=== PATIENT | female | born 2000 | race Caucasian/White ===

== ENCOUNTER 2018-02-05 18:14 | Emergency (ER) | payer BC ==
--- NOTE | 2018-02-05 18:43 | UC ---
Throat Pain/Nasal Williams HPI - HPI Summary HPI Summary: 17 year old female presents with 2-3 day history of sore throat. Associated with some mild right ear pain, mild, nasal congestion, and clear discharge. Denies fever, chills, dysphagia, or cough. - History of Current Complaint Chief Complaint: UCGeneralIllness Stated Complaint: THROAT COMPLAINT Time Seen by Provider: 02/05/18 18:28 Hx Obtained From: Patient Hx Last Menstrual Period: 01/24/18 ?: No Onset/Duration: Gradual Onset, Lasting Days - 2-3 Severity: Mild Pain Intensity: 6 Cough: None Associated Signs & Symptoms: Positive: Negative - Allergies/Home Medications Allergies/Adverse Reactions: Allergies Allergy/AdvReac Type Severity Reaction Status Date / Time No Known Allergies Allergy Verified 02/05/18 18:27 Home Medications: Home Medications Norethindrone-E.estradiol-Iron [Goldie 24 Fe 1-20 mg-Mcg(24)] 1 tab PO BEDTIME [History Confirmed 02/05/18] PMH/Surg Hx/FS Hx/Imm Hx - Additional Past Medical History Additional PMH: noncontributory Previously Healthy: Yes - Surgical History Surgical History: None - Family History Known Family History: Positive: Other - noncontributory - Social History Occupation: Student Lives: Alone Alcohol Use: None Substance Use Type: None Smoking Status (MU): Never Smoked Tobacco Review of Systems Constitutional: Negative Skin: Negative Eyes: Negative ENT: Sore Throat, Ear Ache - right, Nasal Discharge Cardiovascular: Negative Gastrointestinal: Negative Is Patient Immunocompromised?: No All Other Systems Reviewed And Are Negative: Yes Physical Exam Triage Information Reviewed: Yes Appearance: Well-Appearing, No Pain Distress, Well-Nourished Vital Signs: Initial Vital Signs Temp 98.3 F 02/05/18 18:23 Pulse 115 02/05/18 18:23 Resp 16 02/05/18 18:23 BP 114/64 02/05/18 18:23 Pulse Ox 100 02/05/18 18:23 Vital Signs Reviewed: Yes Eyes: Positive: Conjunctiva Clear ENT: Positive: Pharyngeal erythema, Nasal congestion, Nasal drainage, TMs normal , Tonsillar swelling - 2+, Uvula midline. Negative: Tonsillar exudate, Trismus , Muffled voice, Hoarse voice, Sinus tenderness Neck: Positive: Supple, Nontender, No Lymphadenopathy Respiratory: Positive: Lungs clear, Normal breath sounds Cardiovascular: Positive: RRR, No Murmur Abdomen Description: Positive: Nontender, No Organomegaly, Soft Skin Exam: Normal Diagnostics - Laboratory Diagnostic Studies Completed/Ordered: POC rapid strep negative Throat Pain/Nasal Course/Dx - Course Course Of Treatment: 17 year old female with 2-3 day history of sore throat associated with right ear discomfort, mild nasal congestion, and clear drainage. Mild pharyngeal erythema, 2+ tonsils without exudate, no lymphadenopathy. Rapid strep negative. Recommend conservative treatment for viral pharyngitis. Follow up if no improvement. - Differential Dx/Diagnosis Differential Diagnosis/HQI/PQRI: Mononucleosis, Pharyngitis, URI Provider Diagnoses: viral pharyngitis Discharge - Sign-Out/Discharge Documenting (check all that apply): Patient Departure All imaging exams completed and their final reports reviewed: No Studies - Discharge Plan Condition: Stable Disposition: HOME Patient Education Materials: Pharyngitis (ED) Referrals: No Primary Care Phys,NOPCP [Primary Care Provider] - [facility] [Provider Group] - 7 Days (If no improvement.) Additional Instructions: Your rapid strep test in the clinic today was negative. Your symptoms are likely viral. Antibiotics are not indicated for viral infections. Drink plenty of fluids. Use salt water gargles several times a day. Take over the counter pain medication such as acetaminophen (Tylenol) or ibuprofen (Advil, Motrin) according to directions as needed for pain. You may also use over counter Cloraseptic spray or Cepacol lozenges for temporary relief. Follow up with [facility] in 7 days if no improvement. - Billing Disposition and Condition Condition: STABLE Disposition: Home
== END 2018-02-05 18:52 | disposition home or self-care (01) ==
LOC: UCCORT 18:14
DX: J02.8 Acute pharyngitis due to other specified organisms (principal)
CPT/HCPCS: 87651; 99201; G0463

== ENCOUNTER 2019-04-17 18:02 | Emergency (ER) | payer BC ==
[2019-04-17 19:11] VITALS: BP 104/65
[2019-04-17 20:43] LABS: Influenza A Molecular NEGATIVE (Negative); Influenza B Molecular NEGATIVE (Negative)
--- NOTE | 2019-04-17 20:51 | UC ---
FLU HPI - HPI Summary HPI Summary: 18-year-old female presents with onset of fever, chills, general malaise, body aches, sore throat, cough today. Patient states she has also felt a little nauseous and had a couple episodes of loose stool today. Denies ear pain, nasal congestion, dysphagia, chest pain, shortness of breath, abdominal pain, vomiting, dysuria, frequency, or urgency. - History of Current Complaint Chief Complaint: UCRespiratory Stated Complaint: ST, FEVER, BODY ACHES Time Seen by Provider: 04/17/19 20:03 Hx Obtained From: Patient Hx Last Menstrual Period: 03/21/19 Pain Intensity: 4 - Allergy/Home Medications Allergies/Adverse Reactions: Allergies Allergy/AdvReac Type Severity Reaction Status Date / Time No Known Allergies Allergy Verified 04/17/19 19:04 Home Medications: Home Medications Metoprolol Tartrate TAB* [Lopressor TAB*] 1 tab DAILY 04/17/19 [History Confirmed 04/17/19] Norethindrone-E.estradiol-Iron [Blisovi 24 Fe Tablet] 1 tab DAILY 04/17/19 [ History Confirmed 04/17/19] PMH/Surg Hx/FS Hx/Imm Hx Previously Healthy: Yes Cardiovascular History: Other - Tachycardia - Surgical History Surgical History: Yes Surgery Procedure, Year, and Place: T&A, Jun 2018 - Family History Known Family History: Positive: Non-Contributory - Social History Occupation: Student Lives: Dormitory/Roommates Alcohol Use: Occasionally Substance Use Type: None Smoking Status (MU): Never Smoked Tobacco Review of Systems All Other Systems Reviewed And Are Negative: Yes Constitutional: Positive: Fever, Chills, Fatigue Skin: Negative: Rash Eyes: Negative: Drainage, Eye Redness ENT: Positive: Sore Throat. Negative: Ear Ache, Nasal Discharge, Sinus Congestion, Sinus Pain/Tenderness Respiratory: Positive: Cough. Negative: Shortness Of Breath Cardiovascular: Negative: Palpitations, Chest Pain Gastrointestinal: Positive: Diarrhea, Nausea. Negative: Abdominal Pain, Vomiting Genitourinary: Positive: Negative Musculoskeletal: Positive: Myalgia Neurological: Positive: Headache Is Patient Immunocompromised?: No Physical Exam - Summary Physical Exam Summary: GENERAL APPEARANCE: Well developed, well nourished, alert and cooperative, and appears to be in no acute distress. EYES: Conjunctiva clear. No drainage. EARS: External auditory canals and tympanic membranes clear, hearing grossly intact. NOSE: No nasal discharge. THROAT: Mild pharyngeal erythema. Tonsils surgically absent. Uvula midline. NECK: Neck supple, non-tender without lymphadenopathy. CARDIAC: Normal S1 and S2. No S3, S4 or murmurs. Rhythm is regular. There is no peripheral edema, cyanosis or pallor. Extremities are warm and well perfused. Capillary refill is less than 2 seconds. Peripheral pulses intact. LUNGS: Clear to auscultation without rales, rhonchi, wheezing or diminished breath sounds. ABDOMEN: Positive bowel sounds. Soft, nondistended, nontender. No guarding or rebound. No masses or hepatosplenomegally. No CVA tenderness. MUSKULOSKELETAL: ROM intact to all extremities. No joint erythema or tenderness. Normal muscular development. Normal gait. SKIN: Skin normal color, texture and turgor with no lesions or eruptions. Triage Information Reviewed: Yes Vital Signs: Initial Vital Signs Temp 99.8 F 04/17/19 19:05 Pulse 118 04/17/19 19:05 Resp 16 04/17/19 19:05 BP 104/65 04/17/19 19:05 Pulse Ox 100 04/17/19 19:05 Vital Signs Reviewed: Yes Flu Course/Dx - Course Course Of Treatment: 18-year-old female presents with onset of fever, chills, general malaise, body aches, sore throat, cough today. Patient states she has also felt a little nauseous and had a couple episodes of loose stool today. Denies ear pain, nasal congestion, dysphagia, chest pain, shortness of breath, abdominal pain, vomiting, dysuria, frequency, or urgency. Afebrile. Mildly tachycardic otherwise vital signs stable. Patient had mild pharyngeal erythema, surgically absent tonsils, no cervical lymphadenopathy, clear bilateral breath sounds, soft , nondistended, nontender abdomen, no CVA tenderness, and otherwise unremarkable exam. Rapid strep test was negative. Rapid flu test was negative. Discussed results with the patient. Recommending symptomatic treatment for a viral syndrome. She is to return here or follow up at [facility] in 5-7 days if symptoms are not improving. Anticipatory guidance and warning signs reviewed with the patient. Verbalizes understanding and agrees with plan of care. - Differential Dx/Diagnosis Differential Diagnosis/HQI/PQRI: Bronchitis, Influenza, Pneumonia, Upper Respiratory Infection, Other - Strep Provider Diagnosis: Viral syndrome Discharge ED - Sign-Out/Discharge Documenting (check all that apply): Patient Departure All imaging exams completed and their final reports reviewed: No Studies - Discharge Plan Condition: Stable Disposition: HOME Patient Education Materials: Viral Syndrome (ED) Referrals: No Primary Care Phys,NOPCP [Primary Care Provider] - Additional Instructions: Your history and exam are consistent with a viral infection. Viral infections do not respond to antibiotics and are limited to the treatment of symptoms. Viral infections typically run their course in 7-10 days. Drink plenty of fluids to avoid dehydration especially if you are running any fever. Take over the counter acetaminophen (Tylenol) or ibuprofen (Advil, Motrin) according to directions as needed for pain or fever. Use salt water gargles several times a day if you have a sore throat. You may also use Chloraseptic spray or Cepacol lonzenges according to directions which contain a numbing medication and can provide some temporary relief from your sore throat. Return here or follow up at the [facility] in 5-7 days if symptoms persist. Seek immediate medical attention in the emergency room if you have fever greater than 100.5 F despite taking acetaminophen or ibuprofen, have chest pain , difficulty breathing, are unable to swallow, or have any worsening of symptoms. - Billing Disposition and Condition Condition: STABLE Disposition: Home
== END 2019-04-17 20:57 | disposition home or self-care (01) ==
LOC: UCCORT 18:02
DX: B34.9 Viral infection, unspecified (principal); R53.81 Other malaise; J02.9 Acute pharyngitis, unspecified; R05 Cough; R11.0 Nausea; R19.5 Other fecal abnormalities; R53.83 Other fatigue; R19.7 Diarrhea, unspecified; M79.10 Myalgia, unspecified site; R51 Headache
CPT/HCPCS: 87651; 99211; G0463